=== PATIENT | female | born 1935 | race Caucasian/White ===

== ENCOUNTER 2018-10-27 12:06 | Emergency (ER) | payer MEDICARE, OTHER ==
[2018-10-27] MEDS ORDERED: Zosyn 3.375GM/100 Ml D5W 3.375 GM/100 ML IVPB IV STA (12:39)
[2018-10-27] MEDS ORDERED: TYLENOL 325 MG PO STA (12:39)
[2018-10-27] MEDS ORDERED: LOPRESSOR 5 MG/5 ML INJECTION IV ONE ×2 (12:52→12:59)
[2018-10-27] MEDS ORDERED: TYLENOL 325 MG ONE (12:59)
--- NOTE | 2018-10-27 12:59 | ERPHSYRPT ---
- History of Present Illness Time Seen by Provider: 10/27/18 12:45 Source: patient Exam Limitations: clinical condition Patient Subjective Stated Complaint: Pt's cat bit her on the top proximal part of left foot on Saturday, foot is red and swollen and draining, denies pain, tachycardic, right foot +3 edema Triage Nursing Assessment: Pt brought in by wheelchair and required help to move into the bed, pt's pulse running around 103 and then suddenly went up to 170 and was placed on the monitor, the monitor just showed that she was tachycardic for a couple of minutes and then went back down to 103, denies pain , 2 puncture polanco on the top proximal portion of left foot Physician History: PATIENT COMPLAINS OF BEING BITED BY HER FAMILY CAT 2 DAYS AGO SUSTAINED SWELLING , REDNESS, PUNCTURE SITES AND DRAINAGE OVER LEFT FOOT, HAS REDNESS, SWELLING EXTENDING TO LEFT KNEE, CLEAR DRAINAGE FROM PUNCTURE SITES. Method of Injury: incised (BITEN BY FAMILY CAT) Occurred: days ago Severity of Pain-Max: moderate Severity of Pain-Current: moderate Lower Extremities Pain: foot: left Modifying Factors: Improves With: movement Associated Symptoms: none Allergies/Adverse Reactions: No Known Drug Allergies Allergy (Verified 10/27/18 12:34) Home Medications: Latanoprost [Xalatan] 2.5 ml OP HS 01/19/16 [History] Hx Tetanus, Diphtheria Vaccination/Date Given: No Hx Influenza Vaccination/Date Given: No Hx Pneumococcal Vaccination/Date Given: No - Past Medical History Pertinent Past Medical History: Yes Neurological History: No Pertinent History ENT History: No Pertinent History Cardiac History: No Pertinent History Respiratory History: No Pertinent History Endocrine Medical History: No Pertinent History Musculoskeletal History: Arthritis, Other GI Medical History: No Pertinent History History: Other Psycho-Social History: No Pertinent History Female Reproductive Disorders: No Pertinent History Other Medical History: CHRONIC BACK PAIN. FREQUENT KIDNEY INFECTIONS - Past Surgical History Past Surgical History: Yes Neuro Surgical History: No Pertinent History Cardiac: No Pertinent History Respiratory: No Pertinent History Gastrointestinal: Appendectomy Genitourinary: No Pertinent History Musculoskeletal: No Pertinent History Female Surgical History: No Pertinent History - Social History Smoking Status: Former smoker Exposure to second hand smoke: No Drug Use: none Patient Lives Alone: Yes (family there all the time) - Nursing Vital Signs Nursing Vital Signs: Initial Vital Signs Temperature 100.4 F 10/27/18 12:17 Pulse Rate 103 H 10/27/18 12:17 Respiratory Rate 31 H 10/27/18 12:17 Blood Pressure 102/61 10/27/18 12:17 O2 Sat by Pulse Oximetry 95 10/27/18 12:17 Pain Scale Pain Intensity 0 - Physical Exam SpO2: 95 - Radiology Exams Chest X-ray Interpretation: Discussed w/ radiologist (NEW SMALL LEFT BASE EFFUSION WITH ADJACENT INFILTRATE/ATELECTASIS) Ordered Tests: Active Orders 24 hr Category Date Time Status IV Insertion STAT Care 10/27/18 12:39 Active Pulse Oximetry (ED) STAT Care 10/27/18 12:39 Active CHEST 1 VIEW (PORTABLE) Stat Exams 10/27/18 12:40 Completed VENOUS BILATERAL EXTREMITY [US] Stat Exams 10/27/18 13:34 Completed BLOOD CULTURE Stat Lab 10/27/18 13:10 Received CBC W DIFF Stat Lab 10/27/18 12:50 Completed CMP Stat Lab 10/27/18 12:50 Completed CULTURE,URINE Stat Lab 10/27/18 12:40 Uncollected Lactic Acid Stat Lab 10/27/18 13:05 Results PROTIME WITH INR Stat Lab 10/27/18 12:50 Completed PTT Stat Lab 10/27/18 12:50 Completed TROPONIN Q3H Lab 10/27/18 13:00 Completed TROPONIN Q3H Lab 10/27/18 16:00 Ordered TROPONIN Q3H Lab 10/27/18 19:00 Ordered TROPONIN Q3H Lab 10/27/18 22:00 Ordered TROPONIN Q3H Lab 10/28/18 01:00 Ordered Urinalysis with Microscopy Stat Lab 10/27/18 Uncollected VENOUS BLOOD GAS Stat Lab 10/27/18 13:05 Completed Transfer Order Routine Transfer 10/27/18 Ordered Medication Summary Generic Name Dose Route Start Last Admin Trade Name Freq PRN Reason Stop Dose Admin Vancomycin HCl 500 mg/ Sodium 100 mls @ 100 mls/hr 10/28/18 10:00 Chloride IV 11/27/18 09:59 [id number] ELVIA Discontinued Medications Generic Name Dose Route Start Last Admin Trade Name Freq PRN Reason Stop Dose Admin Acetaminophen 650 mg 10/27/18 12:39 10/27/18 13:02 Tylenol 325 Mg PO 10/27/18 12:40 650 mg STAT STA Administration Acetaminophen Confirm 10/27/18 12:59 Tylenol 325 Mg Administered 10/27/18 13:00 Dose 650 mg .ROUTE .STK-MED ONE Diphtheria/Tetanus/Acell Pertussis 0.5 ml 10/27/18 13:33 10/27/18 13:40 Adacel Vial IM 10/27/18 13:34 0.5 ml .ONCE ONE Administration Diphtheria/Tetanus/Acell Pertussis Confirm 10/27/18 13:36 Adacel Vial Administered 10/27/18 13:37 Dose 0.5 ml IM .STK-MED ONE Sodium Chloride 1,000 mls @ 999 mls/hr 10/27/18 12:45 10/27/18 14:25 Sodium Chloride 0.9% 1000 Ml IV 10/27/18 14:45 999 mls/hr .Q1H1M ELVIA Administration Piperacillin Sod/Tazobactam Sod 3.375 gm in 100 mls @ 200 mls/hr 10/27/18 12: 39 10/27/18 14:06 Zosyn 3.375gm/100 Ml D5w IV 10/27/18 13:08 Infused STAT STA Infusion Piperacillin Sod/Tazobactam Sod Confirm 10/27/18 13:00 Zosyn 3.375gm/100 Ml D5w Administered 10/27/18 13:01 Dose 3.375 gm in 100 mls @ ud IV .STK-MED ONE Vancomycin HCl 500 mg/ Sodium 100 mls @ 100 mls/hr 10/27/18 13:15 10/27/18 13 :39 Chloride IV 10/27/18 14:14 100 mls/hr NOW ONE Administration Sodium Chloride Confirm 10/27/18 14:25 Sodium Chloride 0.9% 1000 Ml Administered 10/27/18 14:26 Dose 1,000 mls @ ud .ROUTE .STK-MED ONE Metoprolol Tartrate 2.5 mg 10/27/18 12:52 10/27/18 13:03 Lopressor 5 Mg/5 Ml Injection IV 10/27/18 12:53 2.5 mg STAT ONE Administration Metoprolol Tartrate Confirm 10/27/18 12:59 Lopressor 5 Mg/5 Ml Injection Administered 10/27/18 13:00 Dose 5 mg IV .STK-MED ONE Non-Formulary Medication 1 each 10/27/18 13:00 10/27/18 13:47 Pharmacy Dosing Required: Vancomycin MC 10/27/18 13:01 Not Given NOW ONE Lab/Rad Data: Laboratory Result Diagrams 10/27/18 12:50 10/27/18 12:50 Laboratory Results 10/27/18 10/27/18 10/27/18 Range/Units 13:05 13:05 13:00 WBC (4.0-10.5) K/mm3 RBC (4.1-5.4) M/mm3 Hgb (12.0-16.0) gm/dl Hct (35-47) % MCV (78-100) fl MCH (26-32) pg MCHC (32-36) g/dl RDW (11.5-14.0) % Plt Count (150-450) K/mm3 MPV (6-9.5) fl Gran % (36.0-66.0) % Eos # (Auto) (0-0.5) Absolute Lymphs (auto) (1.0-4.6) Absolute Monos (auto) (0.0-1.3) Lymphocytes % (24.0-44.0) % Monocytes % (0.0-12.0) % Eosinophils % (0.00-5.0) % Basophils % (0.0-0.4) % Absolute Granulocytes (1.4-6.9) Basophils # (0-0.4) PT (9.95-12.35) SECONDS INR (0.8-3.0) APTT (25.3-37.0) SECONDS pO2/FiO2 Ratio 21.0 % VBG pH 7.43 H (7.32-7.42) VBG pCO2 at Pat Temp 44 (42-55) mm/Hg VBG pO2 at Pat Temp 22 L (25-40) mm/Hg VBG HCO3 29.2 H* (22-28) meq/L VBG O2 Sat (Jamshid) 43.8 L (95-100) VBG Base Excess 4.3 H (-2.0-2.0) VBG Hemoglobin 11.3 VBG Carboxyhemoglobin 3.1 (0.0-6.9) % T HGB POC Potassium 3.4 L (3.5-5.1) Sodium (137-145) mmol/L Potassium (3.5-5.1) mmol/L Chloride (98-107) mmol/L Carbon Dioxide (22-30) mmol/L Anion Gap (5-15) MEQ/L BUN (7-17) mg/dL Creatinine (0.52-1.04) mg/dL Estimated GFR ML/MIN Glucose (74-106) mg/dL Lactic Acid 3.4 H (0.4-2.0) Calcium (8.4-10.2) mg/dL Total Bilirubin (0.2-1.3) mg/dL AST (14-36) U/L ALT (0-35) U/L Alkaline Phosphatase (38-126) U/L Troponin I 0.159 H* (0.000-0.034) ng/mL Serum Total Protein (6.3-8.2) g/dL Albumin (3.5-5.0) g/dL 10/27/18 10/27/18 10/27/18 Range/Units 12:50 12:50 12:50 WBC 15.1 H (4.0-10.5) K/mm3 RBC 3.69 L (4.1-5.4) M/mm3 Hgb 11.7 L (12.0-16.0) gm/dl Hct 37.0 (35-47) % MCV 100.3 H (78-100) fl MCH 31.7 (26-32) pg MCHC 31.6 L (32-36) g/dl RDW 15.2 H (11.5-14.0) % Plt Count 148 L (150-450) K/mm3 MPV 11.9 H (6-9.5) fl Gran % 82.4 H (36.0-66.0) % Eos # (Auto) 0.01 (0-0.5) Absolute Lymphs (auto) 1.88 (1.0-4.6) Absolute Monos (auto) 0.73 (0.0-1.3) Lymphocytes % 12.5 L (24.0-44.0) % Monocytes % 4.9 (0.0-12.0) % Eosinophils % 0.1 (0.00-5.0) % Basophils % 0.1 (0.0-0.4) % Absolute Granulocytes 12.42 H (1.4-6.9) Basophils # 0.01 (0-0.4) PT 13.2 H (9.95-12.35) SECONDS INR 1.13 (0.8-3.0) APTT 31.1 (25.3-37.0) SECONDS pO2/FiO2 Ratio % VBG pH (7.32-7.42) VBG pCO2 at Pat Temp (42-55) mm/Hg VBG pO2 at Pat Temp (25-40) mm/Hg VBG HCO3 (22-28) meq/L VBG O2 Sat (Jamshid) (95-100) VBG Base Excess (-2.0-2.0) VBG Hemoglobin VBG Carboxyhemoglobin (0.0-6.9) % T HGB POC Potassium (3.5-5.1) Sodium 142 (137-145) mmol/L Potassium 3.6 (3.5-5.1) mmol/L Chloride 101 (98-107) mmol/L Carbon Dioxide 28 (22-30) mmol/L Anion Gap 16.9 H (5-15) MEQ/L BUN 21 H (7-17) mg/dL Creatinine 0.70 (0.52-1.04) mg/dL Estimated GFR > 60.0 ML/MIN Glucose 129 H (74-106) mg/dL Lactic Acid (0.4-2.0) Calcium 9.1 (8.4-10.2) mg/dL Total Bilirubin 1.50 H (0.2-1.3) mg/dL AST 36 (14-36) U/L ALT 14 (0-35) U/L Alkaline Phosphatase 64 (38-126) U/L Troponin I (0.000-0.034) ng/mL Serum Total Protein 7.8 (6.3-8.2) g/dL Albumin 3.9 (3.5-5.0) g/dL - Progress Progress Note: 10/27/18 13:31 PLACED ON SEPSIS PROTOCOL IV BOLUS 45KG X 30 ML, VENOUS DOPPLER LOWER EXTREMITIES NEGATIVE FOR DVT, AFTER 2 SETS OF BLOOD CULTURES, IV ZOSYN 3.375GM AND VANCOMYCIN 500MG IVPB 10/27/18 14:16, EPISODES OF TACHYARRHYTHMIASS RATE 160 FOR FEW SECONDS. HIS OF ARRHYTHMIA, DISCONTINUED METOPROLOL 25MG BID IN 2017 ADMINISTERED LOPRESSOR 2.5MG IV Discussed with : Other (DISCUSSED WITH DR LAZO AT 1400 ACCEPTS TRANSFER TO [facility]) - Departure Departure Disposition: Transfer Clinical Impression: CELLULITIS LEFT LOWER EXTREMITIY, TACHYARRHYTHMIA, ELEVATED TROPONIN Condition: Stable Critical Care Time: No Referrals: DAVID MERCADO MD [Primary Care Provider] -
[2018-10-27] MEDS ORDERED: Zosyn 3.375GM/100 Ml D5W 3.375 GM/100 ML IVPB IV ONE (13:00)
[2018-10-27] MEDS ORDERED: PHARMACY DOSING REQUIRED: VANCOMYCIN MC ONE (13:00)
[2018-10-27] MEDS: Sodium Chloride 0.9% 1000 ML 1,000 ML IV SCH ×2 (13:02→14:25)
--- NOTE | 2018-10-27 13:03 | XRAY ---
Indication: Possible sepsis. Foot injury. Comparison: January 18, 2016. Portable chest demonstrates new small left base effusion with adjacent infiltrate/atelectasis. Stable right base fibrosis/scarring and chronic right hemidiaphragm elevation. Remaining lungs clear. Heart is not enlarged again with aortic valve and scattered aortic calcifications. Bony thorax intact again with osteopenia and degenerative changes. Impression: New small left base effusion with adjacent infiltrate/atelectasis. Stable incidental chronic findings.
[2018-10-27 13:11] LABS: Lactic Acid 3.4 (0.4-2.0)
[2018-10-27 13:12] LABS: VBG BASE EXCESS 4.3 (-2.0-2.0); VBG CARBOXYHEMOGLOBIN 3.1 % T HGB (0.0-6.9); VBG HCO3- 29.2 meq/L (22-28); VBG HEMOGLOBIN 11.3; VBG O2 SATURATION 43.8 (95-100); VBG POTASSIUM 3.4 (3.5-5.1); VBG pH 7.43 (7.32-7.42)
[2018-10-27 13:13] LABS: BASOPHIL % 0.1 % (0.0-0.4); Basophil (Absolute #) 0.01 (0-0.4); Eosinophil % 0.1 % (0.00-5.0); Eosinophil (Absolute #) 0.01 (0-0.5); Granulocyte Absolute (ANC) 12.42 (1.4-6.9); Granulocytes % 82.4 % (36.0-66.0); Hemoglobin 11.7 gm/dl (12.0-16.0); Lymphocyte (Absolute #) 1.88 (1.0-4.6); Lymphocytes % 12.5 % (24.0-44.0); Mean Cell Volume 100.3 fl (78-100); Mean Corpuscular Hemoglobin 31.7 pg (26-32); Mean Corpuscular Hgb Concent. 31.6 g/dl (32-36); Mean Platelet Volume 11.9 fl (6-9.5); Monocyte (Absolute #) 0.73 (0.0-1.3); Monocytes % 4.9 % (0.0-12.0); Platelet Count 148 K/mm3 (150-450); Red Blood Count 3.69 M/mm3 (4.1-5.4); Red Cell Distribution Width 15.2 % (11.5-14.0); White Blood Count 15.1 K/mm3 (4.0-10.5)
[2018-10-27] MEDS ORDERED: VANCOCIN 500 MG VIAL*** 500 MG in Sodium Chloride 100ML MINI-BAG PLUS 100 ML IV ONE (13:15)
[2018-10-27 13:20] LABS: INR 1.13 (0.8-3.0); PROTIME 13.2 SECONDS (9.95-12.35)
[2018-10-27 13:22] LABS: PTT 31.1 SECONDS (25.3-37.0)
[2018-10-27 13:25] LABS: ALBUMIN 3.9 g/dL (3.5-5.0); ALKALINE PHOSPHATASE 64 U/L (38-126); ANION GAP 16.9 MEQ/L (5-15); BLOOD UREA NITROGEN 21 mg/dL (7-17); CHLORIDE 101 mmol/L (98-107); Calcium 9.1 mg/dL (8.4-10.2); Carbon Dioxide 28 mmol/L (22-30); Glucose 129 mg/dL (74-106); Potassium 3.6 mmol/L (3.5-5.1); SGOT/AST 36 U/L (14-36); SGPT/ALT 14 U/L (0-35); SODIUM 142 mmol/L (137-145); Total Protein 7.8 g/dL (6.3-8.2)
[2018-10-27] MEDS ORDERED: Adacel Vial IM ONE ×2 (13:33→13:36)
--- NOTE | 2018-10-27 13:41 | XRAY ---
Indication: Bilateral swelling. Left foot cat bite. Two-dimensional sonogram and color Doppler imaging of the major venous vessels of the left and right leg was performed. Comparison: None No thrombus seen in the examined deep venous vessels of the left and right leg including greater saphenous vein. Veins demonstrate normal compressibility. Venous waveforms are normal with and without augmentation. Impression: Left and right legs negative for DVT.
[2018-10-27] MEDS ORDERED: Sodium Chloride 0.9% 1000 ML 1,000 ML ONE (14:25)
[2018-10-27 14:33] VITALS: BP 110/66
[2018-10-27] MEDS ORDERED: DUONEB 0.5-3 MG/3 ml Neb IH ONE ×2 (15:13→15:16)
[2018-10-27 15:48] VITALS: PULSE 109; O2SAT 80
[2018-10-28] MEDS ORDERED: VANCOCIN 500 MG VIAL*** 500 MG in Sodium Chloride 100ML MINI-BAG PLUS 100 ML IV SCH (10:00)
== END 2018-10-27 15:33 | disposition short-term general hospital (02) ==
LOC: ED 12:06
DX: L03.116 Cellulitis of left lower limb (principal); W55.01XA Bitten by cat, initial encounter; R00.0 Tachycardia, unspecified; R79.89 Other specified abnormal findings of blood chemistry; Z79.899 Other long term (current) drug therapy
CPT/HCPCS: 36415; 71045; 80053; 82805; 83605; 84484; 85025; 85610; 85730; 87040; 87070; 87077; 87186; 90471; 90715; 93970; 94640; 96360; 96361; 96365; 96374; 99285; J2543; J3370; A9270-GY

== ENCOUNTER 2018-11-25 12:06 | Inpatient (IN) | payer MEDICARE, OTHER ==
[2018-11-25] MEDS ORDERED: CEPACOL SORE THROAT LOZENGE PO PRN (15:09)
[2018-11-25] MEDS ORDERED: TYLENOL 325 MG PO PRN (15:09)
[2018-11-25 15:28] LABS: Hemoglobin 10.3 gm/dl (12.0-16.0); Mean Cell Volume 102.7 fl (78-100); Mean Corpuscular Hemoglobin 31.1 pg (26-32); Mean Corpuscular Hgb Concent. 30.3 g/dl (32-36); Mean Platelet Volume 11.8 fl (6-9.5); Platelet Count 152 K/mm3 (150-450); Red Blood Count 3.31 M/mm3 (4.1-5.4); Red Cell Distribution Width 15.3 % (11.5-14.0); White Blood Count 10.6 K/mm3 (4.0-10.5)
[2018-11-25] MEDS ORDERED: MEDICATION INTERVENTION MC SCH (15:30)
[2018-11-25 15:35] LABS: BLOOD UREA NITROGEN 26 mg/dL (7-17); CHLORIDE 91 mmol/L (98-107); Creatinine 1 0.51 mg/dL (0.52-1.04); Glucose 104 mg/dL (74-106); NT PRO BNP 17300 pg/mL (0-1800); Potassium 3.4 mmol/L (3.5-5.1); SODIUM 138 mmol/L (137-145)
[2018-11-25] MEDS: Sodium Chloride 0.9% 1000 ML 1,000 ML IV SCH (15:37)
[2018-11-25 16:02] LABS: TROPONIN 0.044 ng/mL (0.000-0.034)
[2018-11-25 16:03] LABS: ANION GAP 7.4 MEQ/L (5-15); Carbon Dioxide 43 mmol/L (22-30)
[2018-11-25] MEDS: Lopressor 25MG Tab PO SCH (17:11)
[2018-11-25] MEDS: BUMEX 1 MG IV SCH (17:11)
[2018-11-25] MEDS: Zestril 5 MG PO SCH (17:11)
--- NOTE | 2018-11-25 18:54 | XRAY ---
Exam: AP upright portable chest film from 11/25/2018. Comparison: AP upright portable chest film from 10/27/2018. Indication: CHF. Findings: Compared to the prior study from 10/27/2018, there is increasing bibasilar airspace disease, left greater than right. The left hemidiaphragm is completely obscured on the current study. I believe there is some probable mild left basal pleural effusion present. I believe the heart size is within normal limits. No significant central perihilar vascular congestion or pulmonary vascular redistribution to the upper lung matias is seen. The upper two thirds of each lung field appear clear. EKG leads overlie the chest. There is no pneumothorax. Bone demineralization is seen. There is some elevation of each humeral head with respect to the glenoid fossa suggestive of chronic bilateral rotator cuff disease. Mild degenerative changes are seen within the lower thoracic spine. Impression: 1. Compared to the prior study from 10/27/2018, there is increasing mild to moderate bibasilar airspace disease, left greater than right. This may reflect pneumonic infiltrates and/or atelectasis. I believe there is also some concomitant pleural fluid at the left lung base which is obscures the left hemidiaphragm. 2. The upper and midlung zones appear relatively clear bilaterally. 3. Normal heart size.
[2018-11-25] MEDS: Xalatan OP SCH (21:22)
[2018-11-25] MEDS: Aldactone 25 MG PO SCH (21:24)
[2018-11-25] MEDS ORDERED: NON-FORMULARY ITEM (Latanoprost/Pf [Latanoprost 0.005% Eye Drop] 1 DROP) OP SCH (22:00)
[2018-11-26] MEDS ORDERED: NON-FORMULARY ITEM (Brimonidine Tartrate/Timolol [Combigan 0.2%-0.5% Eye Drops] 1 DROP) OP SCH (10:00)
[2018-11-26] MEDS ORDERED: Lasix 40 MG PO SCH (10:00)
[2018-11-26] MEDS: Klor Con 10 MEQ PO SCH (11:44)
[2018-11-26] MEDS: Zestril 5 MG PO SCH (11:44)
[2018-11-26] MEDS: Lopressor 25MG Tab PO SCH (11:44)
[2018-11-26] MEDS: FEOSOL 325 MG PO SCH (11:45)
[2018-11-26] MEDS: Aldactone 25 MG PO SCH ×2 (11:45→22:35)
[2018-11-26] MEDS: BUMEX 1 MG IV SCH (11:45)
[2018-11-26] MEDS: ECOTRIN 81 MG PO SCH (11:53)
[2018-11-26] MEDS: Xalatan OP SCH (22:35)
--- NOTE | 2018-11-27 09:00 | CONS ---
CONSULT DATE: 11/26/2018 BRIEF HISTORY: This is an 83 year-old female who was transferred from [facility] due to hypotension and tachycardia. The patient is known to have critical aortic stenosis who together with the family decided medical therapy and refused any kind of intervention although she would be extremely risk for intervention because of her general debility. She apparently was examined by nurse practitioner who noted that blood pressure was marginal and also she was tachycardic. The patient is unable to give any meaningful historical information. She has some periods of confusion. CARDIAC RISK FACTORS: Negative for diabetes. Positive for hypertension. No known hyperlipidemia. 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 RESPIRATORY: She has occasional cough. GI: Negative history for peptic ulcer or colon disorder. : Negative for dysuria or hematuria. PERIPHERAL VASCULAR: No history of DVT or claudication. CURRENT MEDICATIONS: Acetaminophen, aspirin, Cepacol Sore Throat, Timolol eye drops, ferrous sulfate, furosemide, Latanoprost, potassium chloride. SOCIAL HISTORY: She is currently staying at a [facility]. PHYSICAL EXAMINATION: Her blood pressure is 92/55 with heart rate of 67, respirations of about 18. GENERAL: The patient is an elderly female who looks frail, somewhat under nourished who is somewhat confused. HEENT: Slightly pale conjunctivae. NECK: No significant JVD. CHEST: The breath sounds are diminished. CARDIAC: There is a grade 2/6 harsh systolic ejection murmur. There is no diastolic component. The rhythm is irregular. ABDOMEN: Soft, normal bowel sounds. EXTREMITIES: There is trace edema with decreased distal pulses. LAB DATA AND DIAGNOSTIC TESTS: The EKG shows sinus rhythm with right bundle branch block. The troponin is 0.045. Hemoglobin 10.2 with PLT of 152,000. Creatinine 0.51. Glomerular filtration rate greater than 50. Potassium 3.4. BNP 17,300. IMPRESSION: In essence the patient presented with chronic heart failure most likely related to the critical aortic stenosis. Unfortunately, she is not a candidate for any aortic intervention because of her general debility. Also the patient has refused any type of intervention. She is currently Do Not Resuscitate. She appears to have responded well to the diuretic and probably should be maintained on some maintenance diuretic to prevent congestion. Her risk for sudden cardiac is extremely high given the nature of the aortic stenosis. The family is fully aware.
[2018-11-27] MEDS: FEOSOL 325 MG PO SCH (09:38)
[2018-11-27] MEDS: ECOTRIN 81 MG PO SCH (09:39)
[2018-11-27] MEDS: Zestril 5 MG PO SCH (09:40)
[2018-11-27] MEDS: Aldactone 25 MG PO SCH ×2 (09:41→23:05)
[2018-11-27] MEDS: Lopressor 25MG Tab PO SCH (09:42)
[2018-11-27] MEDS: Klor Con 10 MEQ PO SCH (09:42)
--- NOTE | 2018-11-27 12:52 | PCM.HP ---
History of Present Illness - Chief Complaint Chief Complaint: shortness of breath for 4 days History of Present Illness: is a 83 year old female admitted from [facility] with worsening shortness of breath for 3-4 days - Review of Systems Constitutional: No Fever, No Chills Eyes: No Symptoms Ears, Nose, & Throat: No Symptoms Respiratory: Cough, Orthopnea, Short Of Breath, Wheezing Cardiac: No Chest Pain, No Edema, No Syncope Abdominal/Gastrointestinal: No Abdominal Pain, No Nausea, No Vomiting, No Diarrhea Genitourinary Symptoms: No Dysuria Musculoskeletal: No Back Pain, No Neck Pain Skin: No Rash Neurological: No Dizziness, No Focal Weakness, No Sensory Changes Psychological: No Symptoms Endocrine: No Symptoms Hematologic/Lymphatic: No Symptoms Immunological/Allergic: No Symptoms Medications & Allergies Home Medications: Home Medication List Acetaminophen 325 mg [Tylenol 325 mg] 650 mg PO Q6HPRN PRN 11/25/18 [ History Confirmed 11/25/18] Aspirin EC 81 mg [Ecotrin 81 mg] 81 mg PO DAILY 11/25/18 [History Confirmed 11/25/18] Benzocaine/Menthol [Cepacol Sore Throat Lozenge] 1 tab PO Q4HPRN PRN 11/25 [History Confirmed 11/25/18] Brimonidine Tartrate/Timolol [Combigan 0.2%-0.5% Eye Drops] 1 drop OP DAILY 02/05 [History Confirmed 11/25/18] Ferrous Sulfate 325 mg PO DAILY 11/25/18 [History Confirmed 11/25/18] Furosemide 40 mg [Lasix 40 MG] 40 mg PO DAILY 11/25/18 [History Confirmed 11/25/18] Latanoprost/Pf [Latanoprost 0.005% Eye Drop] 1 drop OP HS 11/25/18 [History Confirmed 11/25/18] Potassium Chloride 10 Meq Tab* [Klor Con 10 MEQ] 10 meq PO DAILY 11/25/18 [ History Confirmed 11/25/18] Allergies/Adverse Reactions: Allergies Allergy/AdvReac Type Severity Reaction Status Date / Time No Known Drug Allergies Allergy Verified 10/27/18 12:34 - Past Medical History Past Medical History: Yes Neurological History: No Pertinent History ENT History: Glaucoma, Macular Degeneration Cardiac History: Other Respiratory History: CHF Endocrine Medical History: No Pertinent History Musculoskelatal History: Arthritis, Other GI Medical History: No Pertinent History History: Other Pyscho-Social History: No Pertinent History Reproductive Disorders: No Pertinent History Comment: CHRONIC BACK PAIN. FREQUENT KIDNEY INFECTIONS. LEAKY HEART VALVE - Past Surgical History Past Surgical History: Yes Neuro Surgical History: No Pertinent History Cardiac History: No Pertinent History Respiratory Surgery: No Pertinent History GI Surgical History: Appendectomy Genitourinary Surgical Hx: No Pertinent History Musculskeletal Surgical Hx: No Pertinent History Female Surgical History: No Pertinent History - Social History Smoking Status: Never smoker Exposure to second hand smoke: No Alcohol: None Drug Use: none - Physical Exam Vital Signs: Vital Signs - 24 hr Temp Pulse Resp BP Pulse Ox 11/27/18 11:43 68/38 11/27/18 11:40 72/42 11/27/18 11:39 98.2 F 67 22 67/36 96 11/27/18 07:32 95 11/27/18 07:00 98.5 F 92 H 24 91/51 96 11/27/18 04:25 99.1 F 91 H 24 85/54 95 11/27/18 00:00 97.3 F 81 16 79/37 94 L 11/26/18 20:47 96 11/26/18 20:15 98.4 F 74 16 69/39 96 11/26/18 16:05 98.1 F 81 18 92/55 98 11/26/18 12:59 97.8 F 52 L 18 88/52 97 Oxygen-Last 24 hours O2 Percentage 2 Liters = 28% O2 Percentage 2 Liters = 28% O2 Percentage 2 Liters = 28% O2 Percentage 2 Liters = 28% O2 Percentage 2 Liters = 28% O2 Percentage 2 Liters = 28% O2 Percentage 2 Liters = 28% General Appearance: no apparent distress, alert Neurologic Exam: alert, oriented x 3, cooperative, normal mood/affect, nml cerebellar function, nml station & gait, sensation nml, No motor deficits Eye Exam: PERRL/EOMI, eyes nml inspection Ears, Nose, Throat Exam: normal ENT inspection, TMs normal, pharynx normal, moist mucous membranes Neck Exam: normal inspection, non-tender, supple, full range of motion Respiratory Exam: normal breath sounds, lungs clear, No respiratory distress Cardiovascular Exam: regular rate/rhythm, normal heart sounds, normal peripheral pulses Gastrointestinal/Abdomen Exam: soft, normal bowel sounds, No tenderness, No mass Back Exam: normal inspection, normal range of motion, No CVA tenderness, No vertebral tenderness Extremity Exam: normal inspection, normal range of motion, pelvis stable Skin Exam: normal color, warm, dry, No rash Wound Assessment: Skin/Wound Assessment Wound/Incision Assessment Start: 11/25/18 14: 00 Text: Status: Active Freq: Q6H Protocol: Document 11/27/18 08:00 (Rec: 11/27/18 10:22 [id number]) Wound/Incision Assessment Right Sacrum Wound Assessment Shift Assessment Wound Type Pressure Ulcer Wound Stage Stage II Drainage Amount None Drainage Odor None/Absent Length (cm) (cm) 3 Width (cm) (cm) 2 Wound Bed Greatest Portion Red (Granulation) Wound Bed Lesser Portion Pale [place] Surrounding Tissue Blanched/Dull Comment HEALING STAGE II, SHEARING, BARRIER CREAM APPLIED PRN. Lymphatic Exam: No adenopathy Results - Labs Lab/Micro Results: Microbiology 11/25/18 15:20 Urine Culture - Final Urine, Indwelling Catheter Escherichia Coli - Radiology Impressions Radiology Exams & Impressions: Radiology Procedures Category Date Time Status CHEST 1 VIEW (PORTABLE) Routine Exams 11/25/18 18:32 Completed ECHO W/2D AND DOPPLER [US] Routine Exams 11/26/18 11:44 Taken Assessment/Plan (1) Elevated troponin Current Visit: Yes Status: Acute Code(s): R79.89 - OTHER SPECIFIED ABNORMAL FINDINGS OF BLOOD CHEMISTRY (2) CHF (congestive heart failure), NYHA class IV Current Visit: Yes Status: Acute Qualifiers: Congestive heart failure type: combined Congestive heart failure chronicity : acute on chronic Qualified Code(s): I50.43 - Acute on chronic combined systolic (congestive) and diastolic (congestive) heart failure Code(s): I50.9 - HEART FAILURE, UNSPECIFIED
--- NOTE | 2018-11-27 12:53 | PCM.NOTE ---
Date and Time: 11/27/18 1252 Subjective Assessment: doing ok - Review of Systems Constitutional: No Fever, No Chills Eyes: No Symptoms Ears, Nose, & Throat: No Symptoms Respiratory: No Cough, No Short Of Breath Cardiac: Palpitations, Orthopnea, No Chest Pain, No Edema, No Syncope Abdominal/Gastrointestinal: No Abdominal Pain, No Nausea, No Vomiting, No Diarrhea Genitourinary Symptoms: No Dysuria Musculoskeletal: No Back Pain, No Neck Pain Skin: No Rash Neurological: No Dizziness, No Focal Weakness, No Sensory Changes Psychological: No Symptoms Endocrine: No Symptoms Hematologic/Lymphatic: No Symptoms Immunological/Allergic: No Symptoms Objective Exam General Appearance: no apparent distress, alert Neurologic Exam: alert, oriented x 3, cooperative, normal mood/affect, nml cerebellar function, sensation nml, No motor deficits Skin Exam: normal color, warm, dry Wound Assessment: Skin/Wound Assessment Wound/Incision Assessment Start: 11/25/18 14: 00 Text: Status: Active Freq: Q6H Protocol: Document 11/27/18 08:00 (Rec: 11/27/18 10:22 [email or web address]) Wound/Incision Assessment Right Sacrum Wound Assessment Shift Assessment Wound Type Pressure Ulcer Wound Stage Stage II Drainage Amount None Drainage Odor None/Absent Length (cm) (cm) 3 Width (cm) (cm) 2 Wound Bed Greatest Portion Red (Granulation) Wound Bed Lesser Portion Pale [place] Surrounding Tissue Blanched/Dull Comment HEALING STAGE II, SHEARING, BARRIER CREAM APPLIED PRN. Eye Exam: PERRL, EOMI, eyes nml inspection Ears, Nose, Throat Exam: normal ENT inspection, pharynx normal, moist mucous membranes Neck Exam: normal inspection, non-tender, supple, full range of motion Respiratory Exam: crackles/rales, rhonchi, No respiratory distress Cardiovascular Exam: regular rate/rhythm, normal heart sounds Gastrointestinal/Abdomen Exam: soft, No tenderness, No mass Extremity Exam: normal inspection, normal range of motion Back Exam: normal inspection, normal range of motion, No CVA tenderness, No vertebral tenderness Pelvic Exam: deferred Rectal Exam: deferred OBJECTIVE DATA Vital Signs: Vital Signs - 24 hr Temp Pulse Resp BP Pulse Ox 11/27/18 11:43 68/38 11/27/18 11:40 72/42 11/27/18 11:39 98.2 F 67 22 67/36 96 11/27/18 07:32 95 11/27/18 07:00 98.5 F 92 H 24 91/51 96 11/27/18 04:25 99.1 F 91 H 24 85/54 95 11/27/18 00:00 97.3 F 81 16 79/37 94 L 11/26/18 20:47 96 11/26/18 20:15 98.4 F 74 16 69/39 96 11/26/18 16:05 98.1 F 81 18 92/55 98 11/26/18 12:59 97.8 F 52 L 18 88/52 97 Oxygen-Last 24 hours O2 Percentage 2 Liters = 28% O2 Percentage 2 Liters = 28% O2 Percentage 2 Liters = 28% O2 Percentage 2 Liters = 28% O2 Percentage 2 Liters = 28% O2 Percentage 2 Liters = 28% O2 Percentage 2 Liters = 28% Pain Assessment - Last Documented Pain Intensity 0 Pain Scale Used 0-10 Pain Scale,FLACC Intake and Output: Intake & Output 11/25/18 11/26/18 11/27/18 11/28/18 11:59 11:59 11:59 11:59 Intake Total 627 1165 Output Total 1500 1250 Balance -873 -85 Weight 51.6 kg 52.1 kg 52.1 kg Radiology Exams: Radiology Procedures Category Date Time Status CHEST 1 VIEW (PORTABLE) Routine Exams 11/25/18 18:32 Completed ECHO W/2D AND DOPPLER [US] Routine Exams 11/26/18 11:44 Taken Assessment/Plan (1) CHF (congestive heart failure), NYHA class IV Current Visit: Yes Status: Acute Qualifiers: Congestive heart failure type: combined Congestive heart failure chronicity : acute on chronic Qualified Code(s): I50.43 - Acute on chronic combined systolic (congestive) and diastolic (congestive) heart failure Assessment & Plan: Chief Complaint Diagnosis shortness of breath for 4 days Allergies Allergy/AdvReac Type Severity Reaction Status Date / Time No Known Drug Allergies Allergy Verified 10/27/18 12:34 Vital Signs (Last 24 hours) Temp Pulse Resp BP Pulse Ox 11/27/18 11:43 68/38 11/27/18 11:40 72/42 11/27/18 11:39 98.2 F 67 22 67/36 96 11/27/18 07:32 95 11/27/18 07:00 98.5 F 92 H 24 91/51 96 11/27/18 04:25 99.1 F 91 H 24 85/54 95 11/27/18 00:00 97.3 F 81 16 79/37 94 L 11/26/18 20:47 96 11/26/18 20:15 98.4 F 74 16 69/39 96 11/26/18 16:05 98.1 F 81 18 92/55 98 11/26/18 12:59 97.8 F 52 L 18 88/52 97 Home Medications Medication Instructions Recorded Confirmed Last Taken Type Acetaminophen 325 mg [Tylenol 650 mg PO Q6HPRN PRN 11/25/18 11/25/18 Unknown History 325 mg] Aspirin EC 81 mg [Ecotrin 81 81 mg PO DAILY 11/25/18 11/25/18 Unknown History mg] Benzocaine/Menthol [Cepacol 1 tab PO Q4HPRN PRN 11/25/18 11/25/18 Unknown History Sore Throat Lozenge] Brimonidine Tartrate/Timolol 1 drop OP DAILY 11/25/18 11/25/18 Unknown History [Combigan 0.2%-0.5% Eye Drops] Ferrous Sulfate 325 mg PO DAILY 11/25/18 11/25/18 Unknown History Furosemide 40 mg [Lasix 40 40 mg PO DAILY 11/25/18 11/25/18 Unknown History MG] Latanoprost/Pf [Latanoprost 0.005% 1 drop OP HS 11/25/18 11/25/18 Unknown History Eye Drop] Potassium Chloride 10 Meq Tab* 10 meq PO DAILY 11/25/18 11/25/18 Unknown History [Klor Con 10 MEQ] Current Medications Generic Name Dose Route Start Last Admin Trade Name Freq PRN Reason Stop Dose Admin Acetaminophen 650 mg 11/25/18 15:09 Tylenol 325 Mg PO 12/25/18 15:08 Q6HPRN PRN PAIN AND/OR FEVER Aspirin 81 mg 11/26/18 10:00 11/27/18 09:39 Ecotrin 81 Mg PO 12/26/18 09:59 81 mg DAILY ELVIA Administration Bumetanide 1 mg 07/09/19 17:00 11/26/18 11:45 Bumex 1 Mg IV 12/25/18 16:59 1 mg DAILY ELVIA Administration Ferrous Sulfate 325 mg 11/26/18 10:00 11/27/18 09:38 Feosol 325 Mg PO 12/26/18 09:59 325 mg DAILY ELVIA Administration Sodium Chloride 1,000 mls @ 0 mls/hr 11/25/18 14:30 11/25/18 15:37 Sodium Chloride 0.9% 1000 Ml IV 12/25/18 14:29 20 mls/hr .Q0M ELVIA Administration KVO Latanoprost 0 ml 11/25/18 22:00 11/26/18 22:35 Xalatan OP 12/25/18 21:59 1 ml HS ELVIA Administration Lisinopril 2.5 mg 11/25/18 17:00 11/27/18 09:40 Zestril 5 Mg PO 12/25/18 16:59 2.5 mg DAILY ELVIA Administration Metoprolol Tartrate 25 mg 11/25/18 17:00 11/27/18 09:42 Lopressor 25mg Tab PO 12/25/18 16:59 25 mg DAILY ELVIA Administration Miscellaneous Information 0 each 11/25/18 15:30 Medication Intervention 12/25/18 15:29 .RN TO CHECK WITH PT ELVIA Potassium Chloride 10 meq 11/26/18 10:00 11/27/18 09:42 Klor Con 10 Meq PO 12/26/18 09:59 10 meq DAILY ELVIA Administration Spironolactone 25 mg 11/25/18 22:00 11/27/18 09:41 Aldactone 25 Mg PO 12/25/18 21:59 25 mg BID ELVIA Administration Throat Lozenges 15 mg 11/25/18 15:09 Cepacol Sore Throat Lozenge PO 12/25/18 15:08 Q4HPRN PRN SORE THROAT Discontinued Medications Generic Name Dose Route Start Last Admin Trade Name Freq PRN Reason Stop Dose Admin Furosemide 40 mg 11/26/18 10:00 Lasix 40 Mg PO 12/26/18 09:59 DAILY ELVIA Intake & Output (Last 24 hours) 11/25/18 11/26/18 11/27/18 11/28/18 11:59 11:59 11:59 11:59 Intake Total 627 1165 Output Total 1500 1250 Balance -873 -85 Weight 51.6 kg 52.1 kg 52.1 kg Microbiology Results (Last 24 hours) 11/25/18 15:20 Urine, Indwelling Catheter Urine Culture - Final Escherichia Coli Patient Care Notes (Last 24 hours) 11/26/18 19:37 Nursing Note by Apolonia Cyr Pt 1850 BP 64/44 reported to this nurse. Rechecked at 1900 BP after turning pt BP59/31. Dr. Patrick notified. New orders to hold the Bumex at this time. He also recommended Hospice for pt. Notified family of Pt's BP of 59/31 they returned to be with Pt. Informed family of Dr. Patrick's orders and recommendation they agreed to Hospice. New orders completed. Initialized on 11/26/18 19:37 - END OF NOTE Code(s): I50.9 - HEART FAILURE, UNSPECIFIED (2) Elevated troponin Current Visit: Yes Status: Resolved Code(s): R79.89 - OTHER SPECIFIED ABNORMAL FINDINGS OF BLOOD CHEMISTRY
[2018-11-27] MEDS: BUMEX 1 MG IV SCH (13:34)
[2018-11-27] MEDS: Sodium Chloride 0.9% 1000 ML 1,000 ML IV SCH (15:17)
[2018-11-27] MEDS: Xalatan OP SCH (23:00)
[2018-11-28] MEDS: Zestril 5 MG PO SCH (10:29)
[2018-11-28] MEDS: Lopressor 25MG Tab PO SCH (10:29)
[2018-11-28] MEDS: Aldactone 25 MG PO SCH (10:29)
[2018-11-28] MEDS: Klor Con 10 MEQ PO SCH (10:29)
[2018-11-28] MEDS: ECOTRIN 81 MG PO SCH (10:29)
[2018-11-28] MEDS: FEOSOL 325 MG PO SCH (10:29)
[2018-11-28] MEDS: BUMEX 1 MG IV SCH (11:39)
[2018-11-28 12:21] VITALS: BP 76/37; PULSE 71; O2SAT 92
--- NOTE | 2018-12-01 12:48 | ECHO ---
Transthoracic echocardiographic examination and color Doppler was done on 11/26/2018. INDICATION: Aortic stenosis and congestive heart failure. IMPRESSION: 1) GLOBAL LEFT VENTRICULAR HYPOKINESIA. EJECTION FRACTION OF AROUND 35%. 2) SEVERE AORTIC STENOSIS WITH PEAK TRANSAORTIC GRADIENT OF 160 MM OF MERCURY AND AORTIC VALVE AREA OF 0.44. 3) MILD MITRAL REGURGITATION. 4) MILD TRICUSPID REGURGITATION. RIGHT VENTRICULAR SYSTOLIC PRESSURE OF 40 MM OF MERCURY. 5) MODERATE LEFT VENTRICULAR HYPERTROPHY. 6) LEFT ATRIAL ENLARGEMENT. 7) LEFT VENTRICULAR DIASTOLIC DYSFUNCTION. 8) TRACE AORTIC REGURGITATION. 9) PLEURAL EFFUSION. The left ventricle is visualized and demonstrated global left ventricular hypokinesia. Ejection fraction around 35%. There is moderate left ventricular hypertrophy. The mitral valve is sclerotic and this opens adequately. There is mild mitral regurgitation. Left atrium is enlarged. The aortic valve is heavily calcified and has limited opening. The peak gradient across the aortic valve is 160 mm of Mercury with a mean gradient of 95 mm of Mercury and aortic valve area of 0.44. There is trace aortic regurgitation. The right side chambers are mildly dilated. There is mild tricuspid regurgitation. The right ventricular systolic pressure of 40 mm of Mercury. There is also finding of pleural effusion. The tissue Doppler study is suggestive of left ventricular diastolic dysfunction.
== END 2018-11-28 14:45 | DRG 293 ==
LOC: MED SURG 12:34
PROVIDERS: ADMIT General Practice; ATTEND General Practice
DX: I50.9 Heart failure, unspecified (principal); R79.89 Other specified abnormal findings of blood chemistry; L89.152 Pressure ulcer of sacral region, stage 2; I95.9 Hypotension, unspecified; R00.0 Tachycardia, unspecified; I35.0 Nonrheumatic aortic (valve) stenosis; I10 Essential (primary) hypertension; I45.10 Unspecified right bundle-branch block; Z79.899 Other long term (current) drug therapy
CPT/HCPCS: 36415; 71045; 80048; 83880; 84484; 85027; 87077; 87086; 87186; 93005; 93306; 94760; A9270-GY

== ENCOUNTER 2018-12-17 06:22 | Emergency (ER) | payer MEDICARE, OTHER ==
[2018-12-17] MEDS ORDERED: Sodium Chloride 0.9% 1000 ML 1,000 ML IV SCH (06:30)
--- NOTE | 2018-12-17 06:38 | ERPHSYRPT ---
- History of Present Illness Source: patient, EMS Exam Limitations: no limitations Timing/Duration: today Severity: moderate Modifying Factors: Improves With: nothing Associated Symptoms: other (rectal bleeding passing clots), No nausea, No vomiting, No abdominal pain, No shortness of breath, No heartburn, No diaphoresis, No cough, No chills, No chest pain, No fever, No headaches, No loss of appetite, No malaise, No rash, No syncope, No seizure, No weakness Hx Tetanus, Diphtheria Vaccination/Date Given: No Hx Influenza Vaccination/Date Given: No Hx Pneumococcal Vaccination/Date Given: No <KISHORE MENDOZA - Last Filed: 12/17/18 07:09> <ANDREW GARCIA - Last Filed: 12/17/18 08:09> - History of Present Illness Time Seen by Provider: 12/17/18 06:35 Physician History: 83-year-old white female with history of glaucoma, macular degeneration, congestive heart failure, arthritis who states that she's had diverticulitis in the past. Patient arrives with complaint of rectal bleeding since today the patient noted at the care home to have been passing large clots from the rectum. Patient denies any abdominal pain nausea vomiting she states she is not short of breath. She states she is not on any blood thinners. Past medical history includes glaucoma, macular degeneration, congestive heart failure, anxiety, chronic back pain, frequent kidney infections, leaky heart felt. Past surgical history includes appendectomy (KISHORE MENDOZA) Allergies/Adverse Reactions: No Known Drug Allergies Allergy (Verified 10/27/18 12:34) Home Medications: Acetaminophen 325 mg [Tylenol 325 mg] 650 mg PO Q6HPRN PRN 11/25/18 [ History] Aspirin EC 81 mg [Ecotrin 81 mg] 81 mg PO DAILY 11/25/18 [History] Benzocaine/Menthol [Cepacol Sore Throat Lozenge] 1 tab PO Q4HPRN PRN 11/25 [History] Brimonidine Tartrate/Timolol [Combigan 0.2%-0.5% Eye Drops] 1 drop OP DAILY 02/05 [History] Ferrous Sulfate 325 mg PO DAILY 11/25/18 [History] Latanoprost/Pf [Latanoprost 0.005% Eye Drop] 1 drop OP HS 11/25/18 [History] Potassium Chloride 10 Meq Tab* [Klor Con 10 MEQ] 10 meq PO DAILY 11/25/18 [ History] Furosemide 40 mg [Lasix 40 MG] 40 mg PO DAILY 12/17/18 [History] - Review of Systems Constitutional: No Fever, No Chills Eyes: No Symptoms Ears, Nose, & Throat: No Symptoms Respiratory: No Cough, No Dyspnea Cardiac: No Chest Pain, No Edema, No Syncope Abdominal/Gastrointestinal: Hematochezia, No Abdominal Pain, No Nausea, No Vomiting, No Diarrhea Genitourinary Symptoms: No Dysuria Musculoskeletal: No Back Pain, No Neck Pain Skin: No Rash Neurological: No Dizziness, No Focal Weakness, No Sensory Changes Psychological: No Symptoms Endocrine: No Symptoms All Other Systems: Reviewed and Negative <KISHORE MENDOZA - Last Filed: 12/17/18 07:09> - Past Medical History Pertinent Past Medical History: Yes Neurological History: No Pertinent History ENT History: Glaucoma, Macular Degeneration Cardiac History: Other Respiratory History: CHF Endocrine Medical History: No Pertinent History Musculoskeletal History: Arthritis, Other GI Medical History: No Pertinent History History: Other Psycho-Social History: No Pertinent History Female Reproductive Disorders: No Pertinent History Other Medical History: CHRONIC BACK PAIN. FREQUENT KIDNEY INFECTIONS. LEAKY HEART VALVE - Past Surgical History Past Surgical History: Yes Neuro Surgical History: No Pertinent History Cardiac: No Pertinent History Respiratory: No Pertinent History Gastrointestinal: Appendectomy Genitourinary: No Pertinent History Musculoskeletal: No Pertinent History Female Surgical History: No Pertinent History - Social History Smoking Status: Never smoker Exposure to second hand smoke: No Drug Use: none Patient Lives Alone: Yes (family there all the time) <KISHORE MENDOZA - Last Filed: 12/17/18 07:09> - Physical Exam General Appearance: no apparent distress, alert, other (elderly white female thin alert oriented x3) Eye Exam: PERRL/EOMI, eyes nml inspection Ears, Nose, Throat Exam: normal ENT inspection, TMs normal, pharynx normal, moist mucous membranes Neck Exam: normal inspection, non-tender, supple, full range of motion Respiratory Exam: normal breath sounds, lungs clear, No respiratory distress Cardiovascular Exam: regular rate/rhythm, normal heart sounds, normal peripheral pulses, capillary refill <2 sec Gastrointestinal/Abdomen Exam: soft, normal bowel sounds, No tenderness, No mass Rectal Exam: blood Back Exam: normal inspection, normal range of motion, other (sacral decubiti), No CVA tenderness, No vertebral tenderness Extremity Exam: normal inspection, normal range of motion, pelvis stable Neurologic Exam: alert, oriented x 3, cooperative, outside machinist II-XII nml as tested, normal mood/affect, nml cerebellar function, nml station & gait, sensation nml, No motor deficits Skin Exam: normal color, warm, dry, No rash Lymphatic Exam: adenopathy SpO2 Interpretation: normal <KISHORE MENDOZA - Last Filed: 12/17/18 07:09> - Nursing Vital Signs Nursing Vital Signs: Initial Vital Signs Pulse Rate 74 12/17/18 06:23 Respiratory Rate 18 12/17/18 06:23 Blood Pressure 88/40 12/17/18 06:23 O2 Sat by Pulse Oximetry 100 12/17/18 06:23 Pain Scale Pain Intensity 0 - Course Nursing assessment & vital signs reviewed: Yes EKG Interpreted by Me: RATE (74 bpm), NORMAL AXIS, Other (EKG: Sinus rhythm, 74 beats per minute, normal axis, complete right bundle branch block, ST depression leads V4 through V6 also leads to compared to November 25, 2018) <KISHORE MENDOZA - Clement Filed: 12/17/18 07:09> Ordered Tests: Active Orders 24 hr Category Date Time Status Regional Sales Representative STAT Care 12/17/18 06:27 Active EKG-ER Only STAT Care 12/17/18 06:29 Active IV Insertion STAT Care 12/17/18 06:27 Active IV Insertion-2nd Peripheral STAT Care 12/17/18 06:27 Active Pulse Oximetry (ED) STAT Care 12/17/18 06:27 Active CHEST 1 VIEW (PORTABLE) Stat Exams 12/17/18 06:28 Taken CBC W DIFF Stat Lab 12/17/18 06:30 Completed CMP Stat Lab 12/17/18 06:30 Completed CULTURE,URINE Stat Lab 12/17/18 07:00 Received Lactic Acid Stat Lab 12/17/18 07:37 Completed Occult Blood, Other Screening Stat Lab 12/17/18 07:00 Completed PROTIME WITH INR Stat Lab 12/17/18 06:30 Completed PTT Stat Lab 12/17/18 06:30 Completed TROPONIN Q3H Lab 12/17/18 06:30 Completed TROPONIN Q3H Lab 12/17/18 10:15 Ordered TROPONIN Q3H Lab 12/17/18 13:15 Ordered TROPONIN Q3H Lab 12/17/18 16:15 Ordered TROPONIN Q3H Lab 12/17/18 19:15 Ordered UA W/RFX UR CULTURE Stat Lab 12/17/18 07:00 Completed Medication Summary Generic Name Dose Route Start Last Admin Trade Name Freq PRN Reason Stop Dose Admin Sodium Chloride 1,000 mls @ 999 mls/hr 12/17/18 06:30 12/17/18 07:40 Sodium Chloride 0.9% 1000 Ml IV 01/16/19 06:29 Infused .Q1H1M ELVIA Infusion Ceftriaxone Sodium/Dextrose 1 g in 50 mls @ 100 mls/hr 12/17/18 07:36 07:43 Rocephin 1 Gm-D5w 50 Ml Bag IV 12/17/18 08:05 50 mls/hr STAT STA 50 mls/hr Administration Discontinued Medications Generic Name Dose Route Start Last Admin Trade Name Freq PRN Reason Stop Dose Admin Ceftriaxone Sodium/Dextrose Confirm 12/17/18 07:38 Rocephin 1 Gm-D5w 50 Ml Bag Administered 12/17/18 07:39 Dose 1 g in 50 mls @ ud IV .STK-MED ONE Pantoprazole Sodium 40 mg 12/17/18 06:58 12/17/18 07:02 Protonix 40 Mg Iv IV 12/17/18 06:59 40 mg STAT ONE Administration Pantoprazole Sodium Confirm 12/17/18 07:00 Protonix 40 Mg Iv Administered 12/17/18 07:01 Dose 40 mg IV .STK-MED ONE Lab/Rad Data: Laboratory Result Diagrams 12/17/18 06:30 12/17/18 06:30 Laboratory Results 12/17/18 12/17/18 12/17/18 Range/Units 07:37 07:00 07:00 WBC (4.0-10.5) K/mm3 RBC (4.1-5.4) M/mm3 Hgb (12.0-16.0) gm/dl Hct (35-47) % MCV (78-100) fl MCH (26-32) pg MCHC (32-36) g/dl RDW (11.5-14.0) % Plt Count (150-450) K/mm3 MPV (6-9.5) fl Gran % (36.0-66.0) % Eos # (Auto) (0-0.5) Absolute Lymphs (auto) (1.0-4.6) Absolute Monos (auto) (0.0-1.3) Lymphocytes % (24.0-44.0) % Monocytes % (0.0-12.0) % Eosinophils % (0.00-5.0) % Basophils % (0.0-0.4) % Absolute Granulocytes (1.4-6.9) Basophils # (0-0.4) PT (9.95-12.35) SECONDS INR (0.8-3.0) APTT (25.3-37.0) SECONDS Sodium (137-145) mmol/L Potassium (3.5-5.1) mmol/L Chloride (98-107) mmol/L Carbon Dioxide (22-30) mmol/L Anion Gap (5-15) MEQ/L BUN (7-17) mg/dL Creatinine (0.52-1.04) mg/dL Estimated GFR ML/MIN Glucose (74-106) mg/dL Lactic Acid 1.4 (0.4-2.0) Calcium (8.4-10.2) mg/dL Total Bilirubin (0.2-1.3) mg/dL AST (14-36) U/L ALT (0-35) U/L Alkaline Phosphatase (38-126) U/L Troponin I (0.000-0.034) ng/mL Serum Total Protein (6.3-8.2) g/dL Albumin (3.5-5.0) g/dL Urine Color YELLOW (YELLOW) Urine Appearance CLOUDY (CLEAR) Urine pH 5.0 (5-6) Ur Specific [place] 1.013 (1.005-1.025) Urine Protein 30 (Negative) Urine Ketones NEGATIVE (NEGATIVE) Urine Blood LARGE (0-5) Valentín/ul Urine Nitrite POSITIVE (NEGATIVE) Urine Bilirubin NEGATIVE (NEGATIVE) Urine Urobilinogen NEGATIVE (0-1) mg/dL Ur Leukocyte Esterase LARGE (NEGATIVE) Urine WBC (Auto) >100 (0-5) /HPF Urine RBC (Auto) 11-15 (0-2) /HPF U Hyaline Cast (Auto) 3-5 (0-2) /LPF U Epithel Cells (Auto) RARE (FEW) /HPF Urine Bacteria (Auto) MODERATE (NEGATIVE) /HPF U Non-Squamous Epi Cells RARE (FEW) /HPF Amorphous Crystals FEW (NEGATIVE) /HPF Urine Culture Reflexed ORDERED SEPARATELY (NO) Urine Glucose NEGATIVE (NEGATIVE) mg/dL Stool Occult Blood POSITIVE A (Negative) ABO Group Rh Factor Antibody Screen (NEGATIVE) Crossmatch (COMPATIBLE) 12/17/18 12/17/18 12/17/18 Range/Units 06:30 06:30 06:30 WBC (4.0-10.5) K/mm3 RBC (4.1-5.4) M/mm3 Hgb (12.0-16.0) gm/dl Hct (35-47) % MCV (78-100) fl MCH (26-32) pg MCHC (32-36) g/dl RDW (11.5-14.0) % Plt Count (150-450) K/mm3 MPV (6-9.5) fl Gran % (36.0-66.0) % Eos # (Auto) (0-0.5) Absolute Lymphs (auto) (1.0-4.6) Absolute Monos (auto) (0.0-1.3) Lymphocytes % (24.0-44.0) % Monocytes % (0.0-12.0) % Eosinophils % (0.00-5.0) % Basophils % (0.0-0.4) % Absolute Granulocytes (1.4-6.9) Basophils # (0-0.4) PT (9.95-12.35) SECONDS INR (0.8-3.0) APTT (25.3-37.0) SECONDS Sodium (137-145) mmol/L Potassium (3.5-5.1) mmol/L Chloride (98-107) mmol/L Carbon Dioxide (22-30) mmol/L Anion Gap (5-15) MEQ/L BUN (7-17) mg/dL Creatinine (0.52-1.04) mg/dL Estimated GFR ML/MIN Glucose (74-106) mg/dL Lactic Acid (0.4-2.0) Calcium (8.4-10.2) mg/dL Total Bilirubin (0.2-1.3) mg/dL AST (14-36) U/L ALT (0-35) U/L Alkaline Phosphatase (38-126) U/L Troponin I 0.024 (0.000-0.034) ng/mL Serum Total Protein (6.3-8.2) g/dL Albumin (3.5-5.0) g/dL Urine Color (YELLOW) Urine Appearance (CLEAR) Urine pH (5-6) Ur Specific [place] (1.005-1.025) Urine Protein (Negative) Urine Ketones (NEGATIVE) Urine Blood (0-5) Valentín/ul Urine Nitrite (NEGATIVE) Urine Bilirubin (NEGATIVE) Urine Urobilinogen (0-1) mg/dL Ur Leukocyte Esterase (NEGATIVE) Urine WBC (Auto) (0-5) /HPF Urine RBC (Auto) (0-2) /HPF U Hyaline Cast (Auto) (0-2) /LPF U Epithel Cells (Auto) (FEW) /HPF Urine Bacteria (Auto) (NEGATIVE) /HPF U Non-Squamous Epi Cells (FEW) /HPF Amorphous Crystals (NEGATIVE) /HPF Urine Culture Reflexed (NO) Urine Glucose (NEGATIVE) mg/dL Stool Occult Blood (Negative) ABO Group A Rh Factor NEGATIVE Antibody Screen NEGATIVE (NEGATIVE) Crossmatch COMPATIBLE COMPATIBLE (COMPATIBLE) 12/17/18 12/17/18 12/17/18 Range/Units 06:30 06:30 06:30 WBC 8.5 (4.0-10.5) K/mm3 RBC 3.67 L (4.1-5.4) M/mm3 Hgb 11.6 L (12.0-16.0) gm/dl Hct 36.6 (35-47) % MCV 99.7 (78-100) fl MCH 31.6 (26-32) pg MCHC 31.7 L (32-36) g/dl RDW 15.2 H (11.5-14.0) % Plt Count 224 (150-450) K/mm3 MPV 10.9 H (6-9.5) fl Gran % 59.2 (36.0-66.0) % Eos # (Auto) 0.45 (0-0.5) Absolute Lymphs (auto) 2.34 (1.0-4.6) Absolute Monos (auto) 0.65 (0.0-1.3) Lymphocytes % 27.5 (24.0-44.0) % Monocytes % 7.6 (0.0-12.0) % Eosinophils % 5.3 H (0.00-5.0) % Basophils % 0.4 (0.0-0.4) % Absolute Granulocytes 5.04 (1.4-6.9) Basophils # 0.03 (0-0.4) PT 12.3 (9.95-12.35) SECONDS INR 1.09 (0.8-3.0) APTT 30.2 (25.3-37.0) SECONDS Sodium 138 (137-145) mmol/L Potassium 4.4 (3.5-5.1) mmol/L Chloride 97 L (98-107) mmol/L Carbon Dioxide 36 H (22-30) mmol/L Anion Gap 9.4 (5-15) MEQ/L BUN 26 H (7-17) mg/dL Creatinine 0.86 (0.52-1.04) mg/dL Estimated GFR > 60.0 ML/MIN Glucose 105 (74-106) mg/dL Lactic Acid (0.4-2.0) Calcium 9.0 (8.4-10.2) mg/dL Total Bilirubin 0.70 (0.2-1.3) mg/dL AST 28 (14-36) U/L ALT 10 (0-35) U/L Alkaline Phosphatase 62 (38-126) U/L Troponin I (0.000-0.034) ng/mL Serum Total Protein 7.3 (6.3-8.2) g/dL Albumin 3.6 (3.5-5.0) g/dL Urine Color (YELLOW) Urine Appearance (CLEAR) Urine pH (5-6) Ur Specific [place] (1.005-1.025) Urine Protein (Negative) Urine Ketones (NEGATIVE) Urine Blood (0-5) Valentín/ul Urine Nitrite (NEGATIVE) Urine Bilirubin (NEGATIVE) Urine Urobilinogen (0-1) mg/dL Ur Leukocyte Esterase (NEGATIVE) Urine WBC (Auto) (0-5) /HPF Urine RBC (Auto) (0-2) /HPF U Hyaline Cast (Auto) (0-2) /LPF U Epithel Cells (Auto) (FEW) /HPF Urine Bacteria (Auto) (NEGATIVE) /HPF U Non-Squamous Epi Cells (FEW) /HPF Amorphous Crystals (NEGATIVE) /HPF Urine Culture Reflexed (NO) Urine Glucose (NEGATIVE) mg/dL Stool Occult Blood (Negative) ABO Group Rh Factor Antibody Screen (NEGATIVE) Crossmatch (COMPATIBLE) - Progress Progress: improved <KISHORE MENDOZA - Last Filed: 12/17/18 07:09> - Progress Will see patient in: other (transfer to [facility]) <ANDREW GARCIA - Last Filed: 12/17/18 08:09> - Progress Progress Note: 12/17/18 07:03 83-year-old white female with history of glaucoma, macular degeneration congestive heart failure arthritis, chronic back pain, frequent kidney infections, leaky heart who states that she has a history of diverticulitis arrives with complaints of a passing blood clots through her rectum symptoms since today she was noted to have a blood pressure in the 70s at the care home arrives here with a blood pressure of 90 currently 88 systolic. Patient is somewhat pale in appearance a somewhat thin. IV normal saline has been ordered Protonix 40 mg have been ordered. CBC CMP PT PTT troponin chest x-ray has been ordered EKG has been completed impression sinus rhythm 74 beats per minute normal axis complete right bundle branch block ST depression V4 V5 V6 and in leads 2. Chest x-ray aching chest no acute disease process noted. 2 units of packed red blood cells have been ordered I discussed the case with Dr. Garcia she will assume care of this patient . (KISHORE MENDOZA) Pt's labs were back with Hgb of 11.6. Blood tranfusion was held. UA with positive Nitrates and Leukocyte esterase. Ceftriaxone was ordered. Pt is getting IVF. [facility] and Dr Roberson accepted pt for Diverticular bleed, and UTI, and hypotesion. Pt will be stabilized and transfered to [facility]. Will hold all BP meds, and ASA> 12/17/18 08:04 (ANDREW GARCIA) <KISHORE MENDOZA - Last Filed: 12/17/18 07:09> - Departure Departure Disposition: Transfer Critical Care Time: No <ANDREW GARCIA - Last Filed: 12/17/18 08:09> - Departure Clinical Impression: Diverticular hemorrhage Condition: Stable Referrals: GIAN RAMIRES MD [Primary Care Provider] - Additional Instructions: Pt [facility] be transferred to [facility]. Dr Roberson is accepting.
[2018-12-17] MEDS ORDERED: Sodium Chloride 0.9% 1000 ML 1,000 ML ONE (06:48)
[2018-12-17 06:50] LABS: BASOPHIL % 0.4 % (0.0-0.4); Basophil (Absolute #) 0.03 (0-0.4); Eosinophil % 5.3 % (0.00-5.0); Eosinophil (Absolute #) 0.45 (0-0.5); Granulocyte Absolute (ANC) 5.04 (1.4-6.9); Granulocytes % 59.2 % (36.0-66.0); Hematocrit 36.6 % (35-47); Hemoglobin 11.6 gm/dl (12.0-16.0); Lymphocyte (Absolute #) 2.34 (1.0-4.6); Lymphocytes % 27.5 % (24.0-44.0); Mean Cell Volume 99.7 fl (78-100); Mean Corpuscular Hemoglobin 31.6 pg (26-32); Mean Corpuscular Hgb Concent. 31.7 g/dl (32-36); Mean Platelet Volume 10.9 fl (6-9.5); Monocyte (Absolute #) 0.65 (0.0-1.3); Monocytes % 7.6 % (0.0-12.0); Platelet Count 224 K/mm3 (150-450); Red Blood Count 3.67 M/mm3 (4.1-5.4); Red Cell Distribution Width 15.2 % (11.5-14.0); White Blood Count 8.5 K/mm3 (4.0-10.5)
[2018-12-17 06:54] LABS: INR 1.09 (0.8-3.0); PROTIME 12.3 SECONDS (9.95-12.35)
[2018-12-17 06:57] LABS: PTT 30.2 SECONDS (25.3-37.0)
[2018-12-17] MEDS ORDERED: PROTONIX 40 MG IV IV ONE ×2 (06:58→07:00)
[2018-12-17 06:59] LABS: ALBUMIN 3.6 g/dL (3.5-5.0); ALKALINE PHOSPHATASE 62 U/L (38-126); ANION GAP 9.4 MEQ/L (5-15); BLOOD UREA NITROGEN 26 mg/dL (7-17); CHLORIDE 97 mmol/L (98-107); Carbon Dioxide 36 mmol/L (22-30); Creatinine 1 0.86 mg/dL (0.52-1.04); Glucose 105 mg/dL (74-106); Potassium 4.4 mmol/L (3.5-5.1); SGOT/AST 28 U/L (14-36); SGPT/ALT 10 U/L (0-35); SODIUM 138 mmol/L (137-145); Total Protein 7.3 g/dL (6.3-8.2)
[2018-12-17 07:31] LABS: Amourphous Crystal FEW /HPF (NEGATIVE); Appearance CLOUDY (CLEAR); Bacteria MODERATE /HPF (NEGATIVE); Bilirubin NEGATIVE (NEGATIVE); Blood LARGE Ery/ul (0-5); Epithelial Cells RARE /HPF (FEW); Glucose NEGATIVE (NEGATIVE); Ketones NEGATIVE (NEGATIVE); Leukocyte Esterase LARGE (NEGATIVE); Nitrite POSITIVE (NEGATIVE); Non-Squamous Epithelial Cells RARE /HPF (FEW); Protein,Urine Dip 30 (Negative); Specific Gravity 1.013 (1.005-1.025); Urobilinogen NEGATIVE mg/dL (0-1); WBC >100 /HPF (0-5)
[2018-12-17] MEDS ORDERED: ROCEPHIN 1 Gm-D5w 50 ml Bag** 1 G/50 ML IVPB IV STA (07:36)
[2018-12-17] MEDS ORDERED: ROCEPHIN 1 Gm-D5w 50 ml Bag** 1 G/50 ML IVPB IV ONE (07:38)
[2018-12-17 07:47] LABS: ABO TYPING A; Antibody Screen NEGATIVE (NEGATIVE); RH TYPING NEGATIVE
[2018-12-17 07:49] LABS: CROSS MATCH (PRBC) COMPATIBLE (COMPATIBLE)
[2018-12-17 08:55] VITALS: BP 82/48; PULSE 78; O2SAT 99
--- NOTE | 2018-12-17 09:00 | XRAY ---
Indication: GI bleed. Comparison: November 25, 2018. Portable chest better inflated with clearing of the previous bibasilar infiltrates/atelectasis with minimal residual in the left base. New right midlung subsegmental atelectasis/scarring. Remaining lungs clear. Heart is not enlarged again with aortic valve calcifications.
== END 2018-12-17 09:32 | disposition short-term general hospital (02) ==
LOC: ED 06:22
DX: K57.91 Diverticulosis of intestine, part unspecified, without perforation or abscess with bleeding (principal); I50.9 Heart failure, unspecified; M19.90 Unspecified osteoarthritis, unspecified site; I38 Endocarditis, valve unspecified; Z79.899 Other long term (current) drug therapy
CPT/HCPCS: 36000; 36415; 71045; 80053; 81001; 82272; 83605; 84484; 85025; 85610; 85730; 86850; 86900; 86901; 86922; 87077; 87086; 87186; 93005; 93041; 94760; 96360; 96365; 96374; 99285; J0696